=== PATIENT | female | born 2000 | race Hispanic/Latino ===

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

== ENCOUNTER 2020-03-12 18:59 | Emergency (ER) | payer OTHER, SELFPAY ==
[2020-03-12 19:08] VITALS: BP 132/75; PULSE 80; RESP 16; TEMP 37.1; O2SAT 100
--- NOTE | 2020-03-12 19:18 | ED.EAR ---
HPI - Ear Problem General Chief complaint: Ear Stated complaint: severe ear pain Time Seen by Provider: 03/12/20 19:18 Source: patient and RN notes reviewed Mode of arrival: ambulatory Limitations: no limitations History of Present Illness HPI Narrative: 19 year old female who presents to [facility] with complaints of having a cold about 4 weeks ago and she saw her physician at that time but did not receive any prescriptions. Patient states that she has been taking intermittently some Nyquil and also Dayquil for stuffy nose and cough. Patient states that her cough and nasal congestion have improved by for the past 2 days she has had pressure and discomfort in her left ear and decreased ability to hear. Patient has noted wax build up in her right ear with TM normal and some in the left but ear canal of the left ear is red and irritated TM noted to be normal, no drainage noted from her ears. MD Complaint: ear pain Location: left ear Severity: moderate Relieving factors: NDAIDs Exacerbating factors: nothing Context: Reports recent illness (cold symptoms) Associated symptoms ear: decreased hearing and other (ear discomfort with pressure left ear) Treatment prior to arrival: other (took Dayquil and Nyquil) Related Data Allergies Allergy/AdvReac Type Severity Reaction Status Date / Time No Known Allergies Allergy Mild Verified 03/12/20 19:12 Review of Systems Review of Systems: Narrative: CONSTITUTIONAL: Denies fever, chills, or sweats. EYES: Denies visual changes, redness, or discharge. ENT: Positive rhinorrhea, congestion,no sore throat, states left ear otalgia. CARDIOVASCULAR: Denies chest pain, palpitations, or edema. RESPIRATORY: Resolved cough denies any dyspnea GASTROINTESTINAL: Denies abdominal pain, nausea, vomiting, or diarrhea. GENITOURINARY: Denies dysuria or hematuria. SKIN: Denies rash or itching. MUSCULOSKELETAL: Denies back pain, joint pain, or myalgia. NEUROLOGIC: Denies headache, numbness, or weakness. PSYCHIATRIC: Denies anxiety or depression. All systems reviewed & are unremarkable except as noted in HPI and below PMFSH Past Medical History Medical History Patient denies medical problems Surgical History Surgical History Hx of tonsillectomy Social History Social History (Updated 03/12/20 @ 19:59 by Emily Oconnor NP) Smoking status: Never smoker Alcohol intake: never Substance use: never Living arrangements: with family Gender identity (if verbalized by the patient): Female Comments At time of signature, agree with nursing past medical, surgical, social history. There is no relevant family history pertinent to the presenting complaint Exam Narrative: Exam Narrative: GENERAL: Well-appearing, well-nourished, and in no acute distress. HEAD: Normocephalic, atraumatic. EYES: PERRLA and EOMI. ENT: Nares light red, clear rhinorrhea no epistaxis. Mucous membranes moist.TM right has wax build up with no drainage noted no pain voiced to right ear TM normal with good light reflex, Left ear has some wax build up but able to see TM also with no redness to TM, canal is red and irritated, throat is pink no lesions or exudates, previous tonsillectomy, clear post nasal drainage noted to back of throat. NECK: Supple.no lymphadenopathy CHEST: Clear to auscultation. No respiratory distress.SAO2 100% on room air. HEART: Regular rate and rhythm. No murmur heard. Normal peripheral pulses. ABDOMEN: Soft, nontender, nondistended, normal active bowel sounds. EXTREMITIES: Normal range of motion. No edema. SKIN: Warm, dry, no rash. NEURO: No focal deficits. Alert and oriented x3. Course Vital Signs Vital signs: Vital Signs Temperature 37.1 C 03/12/20 19:08 Pulse Rate 80 03/12/20 19:08 Respiratory Rate 16 03/12/20 19:08 Blood Pressure 132/75 03/12/20 19:08 Pulse Oximetry 100 03/12/20 19
== END 2020-03-12 19:38 | disposition home or self-care (01) ==
PROVIDERS: Emergency Provider Registered Nurse
DX: H60.92 Unspecified otitis externa, left ear (principal)
CPT/HCPCS: 99213; G0463

== ENCOUNTER 2020-06-23 10:26 | Emergency (ER) | payer OTHER, SELFPAY ==
--- NOTE | 2020-06-23 10:31 | ED.NAVMDI ---
HPI - Nausea/Vomiting/Diarrhea General Chief complaint: Abdominal Pain Stated complaint: vomiting/diarrhea Time Seen by Provider: 06/23/20 10:30 Source: patient Mode of arrival: ambulatory Limitations: no limitations History of Present Illness HPI Narrative: Patient is a 19 year old female who reports nausea, vomiting and diarrhea x 1 day. She reports eating shrimp last pm and vomiting x 2, she reports multiple episodes of diarrhea this am. She reports a history of IBS and Gastritis by pcp in 09/02. She reports that she does not have pcp at this time. She denies fever, chills, body aches or other complaints. She reports possibility of preganancy as she does not take control and is sexually active. She reports LMP last month. She denies abdominal cramping or urinary complaints at this time. She denies taking otc medications prior to arrival. Patient is also requesting Covid testing because of the nausea, vomiting and diarrhea as her work is requesting. 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 MD elicited complaint: nausea, vomiting and diarrhea Related Data Allergies Allergy/AdvReac Type Severity Reaction Status Date / Time No Known Allergies Allergy Mild Verified 03/12/20 19:12 Review of Systems Review of Systems: Narrative: CONSTITUTIONAL: Denies fever, chills, or sweats. EYES: Denies visual changes, redness, or discharge. ENT: Denies rhinorrhea, congestion, sore throat, or otalgia. CARDIOVASCULAR: Denies chest pain, palpitations, or edema. RESPIRATORY: Denies cough or dyspnea. GASTROINTESTINAL: Denies abdominal pain, reports nausea, vomiting, and diarrhea. GENITOURINARY: Denies dysuria or hematuria. SKIN: Denies rash or itching. MUSCULOSKELETAL: Denies back pain, joint pain, or myalgia. NEUROLOGIC: Denies headache, numbness, dizziness, or weakness. PSYCHIATRIC: Denies anxiety or depression. [facility] Past Medical History Medical History Patient denies medical problems Surgical History Surgical History Hx of tonsillectomy Family History Family History (Updated 06/23/20 @ 10:31 by NAYELI Ramirez) Other No significant family history Social History Social History Smoking status: Never smoker Alcohol intake: never Substance use: never Gender identity (if verbalized by the patient): Female Comments At the time of signature, I have reviewed and agree with nursing past medical, surgical, social, and family history unless otherwise noted. Please see nursing chart for further information. There is no relevant family history pertinent to the presenting complaint. Exam Narrative: Exam Narrative: GENERAL: Well-appearing, well-nourished, and in no acute distress. HEAD: Normocephalic, atraumatic. EYES: EOMI. No redness or drainage. Conjunctiva are normal. ENT: Mucous membranes pink and moist. CHEST: No respiratory distress. Clear to auscultation. HEART: Regular rate and rhythm. No murmur appreciated. Normal peripheral pulses. GI: Soft, nontender without rebound, or guarding. No distention. Bowel sounds normal in all quadrants. EXTREMITIES: Normal range of motion. SKIN: Warm, dry, no rash. NEURO: No focal deficits. Alert and oriented x3. Gait steady. PSYCH: Normal affect. No signs of depression or anxiety. Course Vital Signs Vital signs: Vital Signs Temperature 36.9 C 06/23/20 10:46 Pulse Rate 74 06/23/20 10:46 Respiratory Rate 16 06/23/20 10:46 Blood Pressure 120/59 L 06/23/20 10:46 Pulse Oximetry 99 06/23/20 10:46 Temperature 36.9 C 06/23/20 10:46 Pulse Rate 74 06/23/20 10:46 Respiratory Rate 16 06/23/20 10:46 Blood Pressure 120/59 L 06/23/20 10:46 Pulse Oximetry 99 06/23/20 10:46 MDM - Nausea/Vomiting/Diarrhea MDM Narrative Medical decision making narrative: Pat
[2020-06-23 10:46] VITALS: BP 120/59; PULSE 74; RESP 16; TEMP 36.9; O2SAT 99
--- NOTE | 2020-06-23 11:08 | PC.NURSE ---
in br to obtain ua spec.
== END 2020-06-23 11:38 | disposition home or self-care (01) ==
PROVIDERS: Emergency Provider Nurse Practitioner
DX: K52.9 Noninfective gastroenteritis and colitis, unspecified (principal); Z20.822 Contact with and (suspected) exposure to COVID-19
CPT/HCPCS: 81003; 81025; 87426; 99213; C9803; G0463

== ENCOUNTER 2021-03-02 10:13 | Emergency (ER) | payer OTHER, SELFPAY ==
[2021-03-02 10:36] VITALS: BP 109/61; PULSE 92; RESP 16; TEMP 37.1; O2SAT 100
--- NOTE | 2021-03-02 11:05 | ED.FEMALEGU ---
HPI - Female Genitourinary General Chief complaint: Abdominal Pain Stated complaint: abd pain Time Seen by Provider: 03/02/21 11:05 Source: patient Mode of arrival: ambulatory Limitations: no limitations History of Present Illness HPI Narrative: Yuki Neely is a 20 yo female with no PMH who comes with left sided lower abdominal pain and vaginal discharge; being screened for UTI and STD. No fever, no nausea vomiting diarrhea; last unprotected sexual contact 2 weeks ago; no dysuria, no fever ,nausea, vomiting or diarrhea Related Data Allergies Allergy/AdvReac Type Severity Reaction Status Date / Time No Known Allergies Allergy Mild Verified 03/02/21 10:43 Review of Systems Review of Systems: CONSTITUTIONAL: Denies fever, chills, sweats. EYES: Denies visual changes, redness, discharge. ENT: Denies rhinorrhea, congestion, sore throat, otalgia. CARDIOVASCULAR: Denies chest pain, palpitations, edema. RESPIRATORY: Denies dyspnea, wheezing, cough GASTROINTESTINAL: has lower abdominal pain, no nausea, vomiting, diarrhea. GENITOURINARY: Denies dysuria, hematuria, has abnormal discharge SKIN: Denies rash or itching. NEUROLOGIC: Denies numbness, or focal weakness. PSYCHIATRIC: Denies anxiety or depression. PMFSH Past Medical History Medical History Patient denies medical problems Surgical History Surgical History Hx of tonsillectomy Family History Family History Other No significant family history Social History Social History Smoking status: Never smoker Alcohol intake: never Substance use: never Gender identity (if verbalized by the patient): Female Comments At time of signature, I agree with nursing past medical, surgical, social and family history. There is no relevant family history pertinent to the presenting complaint. Exam Narrative: GENERAL: This is a well-nourished, well-developed patient, in mild distress. HEAD: normocephalic, atraumatic. EYES: Sclera clear/white. Vision is grossly intact. EARS: External ears normal,. Hearing grossly intact. NOSE: External nose normal without nasal discharge, nares without redness, no rhinorrhea. THROAT: Mucous membranes moist, NECK: Neck supple, non-tender CARDIOVASCULAR: Regular rate and rhythm without murmurs, gallops, or rubs. RESPIRATORY: Clear to auscultation. Breath sounds equal bilaterally. No wheezes, rales, or rhonchi. GASTROINTESTINAL: Abdomen soft, tender, mild left suprapubic pain SKIN: warm, intact with no suspicious lesions or rash, good texture and turgor. NEURO: awake, alert, and oriented to person, place and time. There were no obvious focal neurologic abnormalities. Steady gait EXTREMITIES: Normal range of motion. BACK: Nontender without deformity Course Course Emergency Course: [facility] lower abdominal pain and concern over STD after having unprotected sex 2 weeks ago states has a vaginal discharge x 3 days UA shows trace blood trace leukocytes, UA shows minimal amount of discharge although patient states has had yellow discharge over the last few days Given Rocephin, started on doxycycline and Flagyl per CDC guidelines; patient follow-up with OB, primary care physician if abdominal pain does not respond to these medications, or go to an ER for an ultrasound Vital Signs Vital signs: Vital Signs Temperature 98.8 F 03/02/21 10:36 Pulse Rate 92 03/02/21 10:36 Respiratory Rate 16 03/02/21 10:36 Blood Pressure 109/61 03/02/21 10:36 Pulse Oximetry 100 03/02/21 10:36 Temperature 98.8 F 03/02/21 10:36 Pulse Rate 92 03/02/21 10:36 Respiratory Rate 16 03/02/21 10:36 Blood Pressure 109/61 03/02/21 10:36 Pulse Oximetry 100 03/02/21 10:36 MDM - Female Sharla
[2021-03-02] MEDS: cefTRIAXone 500 MG, LIDOCAINE HCL 1% LOCAL INJ 1 ML IM (11:30)
== END 2021-03-02 11:55 | disposition home or self-care (01) ==
PROVIDERS: Emergency Provider Nurse Practitioner
DX: R10.32 Left lower quadrant pain (principal); N89.8 Other specified noninflammatory disorders of vagina
CPT/HCPCS: 81003; 87491; 87591; 87661; 96372; 99214; G0463; J0696

== ENCOUNTER 2021-04-11 09:48 | Emergency (ER) | payer OTHER, SELFPAY ==
[2021-04-11 10:04] VITALS: BP 116/69; PULSE 112; RESP 18; TEMP 39.3; O2SAT 99
--- NOTE | 2021-04-11 10:32 | ED.URI ---
HPI - URI/Sore Throat General Chief Complaint: Upper Respiratory Infection Stated Complaint: Cough, sore throat, ear pain. Time Seen by Provider: 04/11/21 10:33 Source: patient Mode of arrival: ambulatory Limitations: no limitations History of Present Illness HPI Narrative: Yuki Neely is a 20 yo female with no PMH who [facility] with complaints of 102 fever and pain in muscles. Has had diarrhea, has congestion, symptoms started on Sunday Related Data Allergies Allergy/AdvReac Type Severity Reaction Status Date / Time No Known Allergies Allergy Mild Verified 03/02/21 10:43 Review of Systems Review of Systems: CONSTITUTIONAL: Has fever, chills, sweats. EYES: Denies visual changes, redness, discharge. ENT: Denies rhinorrhea, has congestion, sore throat, otalgia. CARDIOVASCULAR: Denies chest pain, palpitations, edema. RESPIRATORY: Denies dyspnea, wheezing, mild cough GASTROINTESTINAL: Denies abdominal pain, nausea, vomiting, has had diarrhea. GENITOURINARY: Denies dysuria, hematuria, abnormal discharge SKIN: Denies rash or itching. NEUROLOGIC: Denies numbness, or focal weakness. PSYCHIATRIC: Denies anxiety or depression. PMFSH Past Medical History Medical History Patient denies medical problems Surgical History Surgical History Hx of tonsillectomy Family History Family History Other No significant family history Social History Social History Smoking status: Never smoker Alcohol intake: never Substance use: never Gender identity (if verbalized by the patient): Female Comments At time of signature, I agree with nursing past medical, surgical, social and family history. There is no relevant family history pertinent to the presenting complaint. Exam Narrative: GENERAL: This is a well-nourished, well-developed patient, in mild distress. HEAD: normocephalic, atraumatic. EYES: Sclera clear/white. Vision is grossly intact. EARS: External ears normal, auditory canals clear and without drainage, TMs normal without perforation. Hearing grossly intact. NOSE: External nose normal without nasal discharge, nares without redness, no rhinorrhea. THROAT: Mucous membranes moist, posterior pharynx erythema NECK: Neck supple, tender CARDIOVASCULAR: Tachycardic rate and rhythm without murmurs, gallops, or rubs. RESPIRATORY: Clear to auscultation. Breath sounds equal bilaterally. No wheezes, rales, or rhonchi. GASTROINTESTINAL: Abdomen soft, SKIN: warm, intact with no suspicious lesions or rash, good texture and turgor. NEURO: awake, alert, and oriented to person, place and time. There were no obvious focal neurologic abnormalities. Steady gait EXTREMITIES: Normal range of motion. BACK: Nontender without deformity Course Course Emergency Course: Patient has had symptoms for 3 days of headache ear pain sore throat fever that has not broken and had a day of watery diarrhea Flu test is positive for A Directions on fever control by rotating Tylenol and ibuprofen and maintaining hydration; given Mucinex as she said they made her feel worse Vital Signs Vital signs: Vital Signs Temperature 102.8 F H 04/11/21 10:04 Pulse Rate 112 H 04/11/21 10:04 Respiratory Rate 18 04/11/21 10:04 Blood Pressure 116/69 04/11/21 10:04 Pulse Oximetry 99 04/11/21 10:04 Temperature 102.8 F H 04/11/21 10:04 Pulse Rate 112 H 04/11/21 10:04 Respiratory Rate 18 04/11/21 10:04 Blood Pressure 116/69 04/11/21 10:04 Pulse Oximetry 99 04/11/21 10:04 MDM - URI/Sore Throat Differential Diagnosis Differential diagnosis: Likely upper respiratory infection, viral infection, bronchitis, influenza, pharyngitis and other Lab Data Labs: Influenza A Screen Positive
[2021-04-11] MEDS: KETOROLAC (*BKC) 60 MG/2 ML VIAL IM (11:04)
== END 2021-04-11 11:08 | disposition home or self-care (01) ==
PROVIDERS: Emergency Provider Nurse Practitioner
DX: J11.1 Influenza due to unidentified influenza virus with other respiratory manifestations (principal)
CPT/HCPCS: 87804; 96372; 99213; G0463; J1885

== ENCOUNTER 2021-09-15 00:07 | Emergency (ER) | payer OTHER, SELFPAY ==
[2021-09-15 00:13] VITALS: BP 147/89; PULSE 94; RESP 18; TEMP 36.6; O2SAT 100
--- NOTE | 2021-09-15 03:11 | ED.EXTPRO ---
HPI - Extremity Problem General Chief complaint: Extremity Problem,Nontraumatic Stated complaint: poss infection rt great toe Time Seen by Provider: 09/15/21 02:22 Source: patient Mode of arrival: ambulatory Limitations: no limitations History of Present Illness HPI Narrative: This is a 20 year old female that presents to the ER for right great toe swelling and pain. Ongoing over the last week. Reports worsening redness and some drainage from the area which prompted her to be seen. Denies fever. Related Data Allergies Allergy/AdvReac Type Severity Reaction Status Date / Time No Known Allergies Allergy Mild Verified 09/15/21 02:39 Review of Systems Review of Systems: CONSTITUTIONAL: Denies fever SKIN: Reports redness and swelling All systems reviewed & are unremarkable except as noted in HPI and below PMFSH Past Medical History Medical History Patient denies medical problems Surgical History Surgical History Hx of tonsillectomy Family History Family History Other No significant family history Social History Social History Smoking status: Never smoker Alcohol intake: never Substance use: never Gender identity (if verbalized by the patient): Female Exam Narrative: GENERAL: Well-appearing, well-nourished, and in no acute distress. HEAD: Normocephalic, atraumatic. EYES: EOMI. EXTREMITIES: Normal range of motion. Mild edema about the right great toe with redness to the lateral aspect of the nail SKIN: Warm, dry, no rash. NEURO: No focal deficits. Alert and oriented x3. PSYCH: Normal mood and affect Course Vital Signs Vital signs: Vital Signs Temperature 98 F 09/15/21 00:13 Pulse Rate 94 09/15/21 00:13 Respiratory Rate 18 09/15/21 00:13 Blood Pressure 147/89 H 09/15/21 00:13 Pulse Oximetry 100 09/15/21 00:13 Oxygen Delivery Room Air 09/15/21 00:13 Temperature 98 F 09/15/21 00:13 Pulse Rate 94 09/15/21 00:13 Respiratory Rate 18 09/15/21 00:13 Blood Pressure 147/89 H 09/15/21 00:13 Pulse Oximetry 100 09/15/21 00:13 Oxygen Delivery Room Air 09/15/21 00:13 Procedures Abscess I/D lower extremity: Date of Incision: 09/15/21 Time of Incision: 03:41 Side (if applicable): right Local Anesthetic: lidocaine 1% Amount of anesthesia used (mL): 3 Technique: needle aspiration Irrigation: No Packing used?: none I&D Results: Blood MDM - Extremity (Nontraumatic) MDM Narrative Medical decision making narrative: Patient presents to the emergency department for paronychia. She is afebrile and nontoxic-appearing. Attempted I&D only produced blood. Patient instructed on warm, soapy soaks. Will be started on oral antibiotics. She is to follow-up with her primary care doctor. She was given warnings to return to the ER Critical Care Time Critical Care Time Critical Care Time: No Discharge Plan Discharge Clinical Impression: Paronychia Patient Disposition: Home, Self-Care Condition: Stable Instructions: Antibiotic Form, Paronychia (ED) Additional Instructions: Return if symptoms worsen or concerns: any increase in redness, swelling, pain or fever over 101 Take antibiotics as directed. Soak the toe in warm soapy water for 15 minutes twice daily Follow up with primary care in the next 2-3 days for re-evaluation Prescriptions: No Action Mucinex Fast-Max Cold-Flu 5-33-802-200 mg tablet 2 tablet PO Q4-6H PRN (Reason: flu symptoms) Qty: 30 0RF Follow-up/Referrals: Sergey,Armida Edmonds APN [Primary Care Provider] - 2 Days
[2021-09-15] MEDS: CEPHALEXIN 500 MG CAPSULE PO (03:46)
== END 2021-09-15 04:08 | disposition home or self-care (01) ==
PROVIDERS: Emergency Provider Emergency Medicine; PCP Nurse Practitioner Family
DX: L03.031 Cellulitis of right toe (principal)
CPT/HCPCS: 10060; 99283; A9270

== ENCOUNTER 2022-07-29 18:12 | Emergency (ER) | payer OTHER, SELFPAY ==
[2022-07-29 18:26] VITALS: BP 130/68; PULSE 89; RESP 12; TEMP 36.8; O2SAT 100
--- NOTE | 2022-07-29 18:36 | ED.EAR ---
HPI - Ear Problem General Chief complaint: Ear Stated complaint: Left Ear Irritation Source: patient and RN notes reviewed History of Present Illness HPI Narrative: 21 yo F presents to urgent care with complaints of left ear pain that has been intermittent the last couple weeks but constant today. Pt also reporting inability to hear out of left ear for a couple days. Denies any fevers, chills, congestion, sore throat, or other complaints. Related Data Allergies Allergy/AdvReac Type Severity Reaction Status Date / Time No Known Allergies Allergy Mild Verified 07/29/22 18:34 Review of Systems Review of Systems: CONSTITUTIONAL: Denies fever, chills, or sweats. EYES: Denies visual changes, redness, or discharge. ENT: left ear pain as well as can't hear out of left ear. CARDIOVASCULAR: Denies chest pain, palpitations, or edema. RESPIRATORY: Denies cough or dyspnea. GASTROINTESTINAL: Denies abdominal pain, nausea, vomiting, or diarrhea. GENITOURINARY: Denies dysuria or hematuria. SKIN: Denies rash or itching. MUSCULOSKELETAL: Denies back pain, joint pain, or myalgia. NEUROLOGIC: Denies headache, numbness, or weakness. Pertinent positives per HPI. PMFSH Past Medical History Medical History Patient denies medical problems Surgical History Surgical History Hx of tonsillectomy Family History Family History Other No significant family history Social History Social History Smoking status: Never smoker Alcohol intake: never Substance use: never Living arrangements: with family Gender identity (if verbalized by the patient): Female Comments At the time of my signature, I reviewed and agree with the nursing past medical, surgical, social, and family history. There is no relevant family history pertinent to the patient complaint. Exam Narrative: GENERAL: This is a well-nourished, well-developed patient, in no apparent distress. HEAD: normocephalic, atraumatic. EYES: PERRL. Sclera clear/white. Vision is grossly intact. EARS: External ears normal, TM's not visualized bilaterally due to cerumen impaction. NOSE: External nose normal with no obvious nasal discharge, nares without redness, no rhinorrhea. THROAT: Mucous membranes moist, posterior pharynx clear. NECK: Neck supple, non-tender without lymphadenopathy, masses or thyromegaly. CARDIOVASCULAR: Regular rate RESPIRATORY: no respiratory distress SKIN: warm, intact with no suspicious lesions or rash, good texture and turgor. NEURO: awake, alert, and oriented to person, place and time. There were no obvious focal neurologic abnormalities. Course Course Level of Care: Express Care Visit Vital Signs Vital signs: Vital Signs Temperature 98.3 F 07/29/22 18:26 Pulse Rate 89 07/29/22 18:26 Respiratory Rate 12 07/29/22 18:26 Blood Pressure 130/68 07/29/22 18:26 Pulse Oximetry 100 07/29/22 18:26 Oxygen Delivery Room Air 07/29/22 18:26 Temperature 98.3 F 07/29/22 18:26 Pulse Rate 89 07/29/22 18:26 Respiratory Rate 12 07/29/22 18:26 Blood Pressure 130/68 07/29/22 18:26 Pulse Oximetry 100 07/29/22 18:26 Oxygen Delivery Room Air 07/29/22 18:26 reviewed. Medical Decision Making MDM Narrative Medical decision making narrative: Take antibiotics as directed. May given ibuprofen and/or Tylenol as needed for pain and/or fever. Follow up with primary care provider in 7-10 days to have ear rechecked. Differential Diagnosis Differential Diagnosis: AOM, cerumen impaction, FB Vital Signs Vital Signs: Vital Signs Temperature 98.3 F 07/29/22 18:26 Pulse Rate 89 07/29/22 18:26 Respiratory Rate 12 07/29/22 18:26 Blood Pressure 130/68 07/29/22 18:26 Pulse Oximetry 100 07/29/22 18:26
== END 2022-07-29 18:40 | disposition home or self-care (01) ==
PROVIDERS: Emergency Provider Nurse Practitioner Family; PCP Nurse Practitioner Family
DX: H61.23 Impacted cerumen, bilateral (principal)
CPT/HCPCS: 99213; G0463

== ENCOUNTER 2022-10-18 16:02 | Emergency (ER) | payer OTHER, SELFPAY ==
[2022-10-18 16:08] VITALS: BP 147/80; PULSE 76; RESP 16; TEMP 37.1; O2SAT 99
[2022-10-18 16:10] VITALS: BP 147/80; PULSE 76; RESP 16; TEMP 37.1; O2SAT 99
--- NOTE | 2022-10-18 16:28 | ED.EAR ---
HPI - Ear Problem General Chief complaint: Ear Stated complaint: Ears Irritation/Nausea Time Seen by Provider: 10/18/22 16:18 Source: patient and RN notes reviewed Mode of arrival: ambulatory Limitations: no limitations History of Present Illness HPI Narrative: patient presents today complaining of right ear pain and nausea. Patient jumped off a 20 ft no into a [place] yesterday, causing immediate pain to both ears. States the left ear has improved, but the right ear pain has persisted. States she can hear normally out of the right ear. She currently rates her pain 4/10 and has been taking ibuprofen with some relief. Related Data Home Medications Medication Instructions Recorded Confirmed No Home Medications 10/18/22 10/18/22 Allergies Allergy/AdvReac Type Severity Reaction Status Date / Time No Known Allergies Allergy Mild Verified 07/29/22 18:34 Review of Systems Review of Systems: CONSTITUTIONAL: Denies body aches, fever, chills, or sweats. EYES: Denies visual changes, redness, or discharge. ENT: Denies rhinorrhea, congestion, sore throat. + Right ear pain CARDIOVASCULAR: Denies chest pain, palpitations, or edema. RESPIRATORY: Denies cough or dyspnea. GASTROINTESTINAL: Denies abdominal pain, vomiting, or diarrhea.+ nausea GENITOURINARY: Denies dysuria or hematuria. SKIN: Denies rash, itching, or wounds. MUSCULOSKELETAL: Denies back pain, joint pain, or myalgia. NEUROLOGIC: Denies headache, numbness, tingling, or weakness. PSYCH: Denies depression or anxiety. [facility] Past Medical History Medical History Patient denies medical problems Surgical History Surgical History Hx of tonsillectomy Family History Family History Other No significant family history Social History Social History Smoking status: Never smoker Alcohol intake: never Substance use: never Living arrangements: with family Gender identity (if verbalized by the patient): Female Comments At time of signature, I have reviewed and agree with nursing past medical, surgical, social and family history unless otherwise noted. Please see nursing chart for further information. There is no relevant family history pertinent to the presenting complaint Exam Narrative: GENERAL: Well-appearing, well-nourished, and in no acute distress. HEAD: Normocephalic, atraumatic. EYES: EOMI. No redness or drainage. Conjunctivae normal. ENT: Mucous membranes pink and moist. Nares clear. No rhinorrhea. left TM and canal normal. right canal normal with small amount of cerumen. The visualized portion of the TM is normal. NECK: Normal AROM. CHEST: No respiratory distress. EXTREMITIES: Normal range of motion. No edema. SKIN: Warm, dry, no rash. Capillary refill normal. Normal skin turgor. NEURO: No focal deficits. Alert and oriented x3. Gait steady. PSYCH: Normal affect. No signs of depression or anxiety. Course Course Level of Care: Express Care Visit Vital Signs Vital signs: Vital Signs Temperature 98.8 F 10/18/22 16:08 Pulse Rate 76 10/18/22 16:08 Respiratory Rate 16 10/18/22 16:08 Blood Pressure 147/80 H 10/18/22 16:08 Pulse Oximetry 99 10/18/22 16:08 Oxygen Delivery Room Air 10/18/22 16:08 Temperature 98.8 F 10/18/22 16:10 Pulse Rate 76 10/18/22 16:10 Respiratory Rate 16 10/18/22 16:10 Blood Pressure 147/80 H 10/18/22 16:10 Pulse Oximetry 99 10/18/22 16:10 Oxygen Delivery Room Air 10/18/22 16:10 Reviewed. Pt has been instructed to follow up with her PCP regarding her elevated blood pressure today. Medical Decision Making MDM Narrative Medical decision making narrative: The visualized portion of the right TM appears
== END 2022-10-18 16:41 | disposition home or self-care (01) ==
PROVIDERS: Emergency Provider Nurse Practitioner; PCP Nurse Practitioner Family
DX: H92.01 Otalgia, right ear (principal)
CPT/HCPCS: 99211; G0463

== ENCOUNTER 2023-08-10 05:10 | Emergency (ER) | payer OTHER, SELFPAY ==
--- NOTE | ~2023-08-10 | XR_ITS ---
EXAMINATION: XR knee RT min 4V DATE: 08/10/2023 06:01 INDICATION: Right knee pain and swelling. Fall. TECHNIQUE: 4 views of right knee were obtained. COMPARISON: None. FINDINGS: Bone alignment is normal. No fracture. There is mild osteoarthritis of medial and patellofe moral compartments. There is a small knee joint effusion. IMPRESSION: 1. Mild right knee osteoarthritis. 2. Small right knee joint effusion. Reviewed, dictated and finalized at location A.
[2023-08-10 05:17] VITALS: BP 144/72; PULSE 87; RESP 14; TEMP 37; O2SAT 100
--- NOTE | 2023-08-10 06:14 | ED.GENADULT ---
HPI - General Adult General Chief complaint: Extremity Injury, Lower Stated complaint: fall, right knee pain Time Seen by Provider: 08/10/23 05:11 History of Present Illness HPI narrative: Patient is a 22-year-old female who presents to the emergency department this morning complaining of knee pain. Patient states that she was walking and felt her knee give out and fell forward landing on her right knee. Patient admits that she has had similar issues with her knee in the past, having multiple episodes of her right knee giving out. Patient admits that she used to play soccer and may have sustained some ligamentous injury in the past. Patient has not had an MRI of her right knee and has not had this evaluated in the past. She has been ambulatory since the fall and is able to put weight on her right lower extremity with some pain. Patient denies hitting her head and denies additional symptoms at this time. Related Data Home Medications Medication Instructions Recorded Confirmed No Home Medications 10/18/22 10/18/22 Allergies Allergy/AdvReac Type Severity Reaction Status Date / Time No Known Allergies Allergy Mild Verified 12/20/22 11:49 Review of Systems Review of Systems: All systems are reviewed and are negative unless stated otherwise in the HPI. [facility] Past Medical History Medical History Patient denies medical problems Surgical History Surgical History Hx of tonsillectomy Family History Family History Other No significant family history Social History Social History Smoking status: Never smoker Alcohol intake: never Substance use: never Living arrangements: with family Gender identity (if verbalized by the patient): Female Exam Narrative: General: Alert, awake, afebrile, in no acute distress. Cardiovascular: Regular rate and rhythm, no murmurs, rubs or gallops, no peripheral edema. Respiratory: Clear to auscultation bilaterally, no tachypnea, no wheezing, no rhonchi, no rubs, no respiratory distress. Abdomen: Soft, nontender, nondistended, no rebound, no guarding, no peritoneal signs. Musculoskeletal: No right knee joint swelling or deformity, tenderness palpation over the medial aspect of the right knee, intact knee flexion and extension, negative anterior and posterior drawer signs. Skin: No rashes or petechia, no signs of infection. Psychiatric: Alert and oriented, normal behavior and judgment for situation. Neurological: Alert and oriented to person, place, and time. Follows all commands. No focal deficits, speech is clear and fluent. Course Vital Signs Vital signs: Vital Signs Temperature 98.6 F 08/10/23 05:17 Pulse Rate 87 08/10/23 05:17 Respiratory Rate 14 08/10/23 05:17 Blood Pressure 144/72 H 08/10/23 05:17 Pulse Oximetry 100 08/10/23 05:17 Oxygen Delivery Room Air 08/10/23 05:17 Temperature 98.6 F 08/10/23 05:17 Pulse Rate 87 08/10/23 05:17 Respiratory Rate 14 08/10/23 05:17 Blood Pressure 144/72 H 08/10/23 05:17 Pulse Oximetry 100 08/10/23 05:17 Oxygen Delivery Room Air 08/10/23 05:17 Medical Decision Making MDM Narrative Medical decision making narrative: The patient was evaluated by myself in the emergency department. History is obtained from patient who is an independent historian and physical exam was performed. External medical records were reviewed at this time. Imaging studies obtained included right knee x-ray which was independently interpreted by me revealing no acute process, which is pending final radiology interpretation. Patient was placed in an Chinmay wrap for comfort. Differential diagnosis considerations include fractures, dislocation, and ligamentous injury. Comorbidities impa
--- NOTE | 2023-08-10 07:26 | PC.NURSE ---
Chinmay bandage applied to R leg.
== END 2023-08-10 07:28 | disposition home or self-care (01) ==
PROVIDERS: Emergency Provider Emergency Medicine; PCP Nurse Practitioner Family
DX: M23.91 Unspecified internal derangement of right knee (principal); S89.91XA Unspecified injury of right lower leg, initial encounter; W18.39XA Other fall on same level, initial encounter
CPT/HCPCS: 73564; 99283

== ENCOUNTER 2023-08-22 10:16 | Outpatient (CLI) | payer OTHER, SELFPAY ==
--- NOTE | ~2023-08-22 | MR_ITS ---
MRI of the right knee Clinical history: Pain Technique: Coronal proton density and proton density-weighted images, sagittal proton-density and T2 fat-sat images, and axial proton-density fat-saturated images were acquired. Findings: Anterior and posterior cruciate ligaments are intact. Medial collateral ligament and the la teral collateral ligament complex are intact. Popliteus tendon is intact. Medial and lateral menisci are intact, without evidence of tear. There is focal bone contusion at the medial aspect of the patellar pole. There is additional bone con tusion at the lateral femoral condyle. There is moderate to high-grade partial tearing of the medial patellar retinaculum at its patellar insertion. Articular cartilage is well preserved throughout the knee. Extensor mechanism intact otherwise. Moder ate joint effusion present. No Nicole's cyst. Impression: Contusions at the medial aspect of the patella and lateral femoral condyle are consistent with recent lateral patellar dislocation-relocation injury. Associated moderate to high-grade partial tearing of the medial patellar retinaculum at its patellar insertion. Moderate joint effusion. Cruciate ligaments and menisci are intact. Reviewed, dictated and finalized at [facility]. Impression: Contusions at the medial aspect of the patella and lateral femoral condyle are consistent with recent lateral patellar dislocation-relocation injury. Associated moderate to high-grade partial tearing of the medial patellar retina culum at its patellar insertion. Moderate joint effusion. Cruciate ligaments and menisci are intact.
== END 2023-08-22 10:17 | disposition home or self-care (01) ==
PROVIDERS: PCP Nurse Practitioner Family; Visit Provider Orthopaedic Surgery
DX: S80.01XA Contusion of right knee, initial encounter (principal); S83.411A Sprain of medial collateral ligament of right knee, initial encounter; M25.461 Effusion, right knee; X58.XXXA Exposure to other specified factors, initial encounter
CPT/HCPCS: 73721

== ENCOUNTER 2024-11-13 20:52 | Emergency (ER) | payer BC, SELFPAY ==
[2024-11-13 20:54] VITALS: BP 125/71; PULSE 110; RESP 20; TEMP 36.9; O2SAT 100
--- OUTSIDE RECORDS SUMMARY | 2024-11-13 20:54 | XMS_ITS | Encounter Summary ---
Author Organization [facility] Address [address] [address] Care Team Providers Care Bottle Caser Name Role Phone Armida Rincon COORDINATING PRODUCER-STREAM CONTROL OFFICER Primary Care Provider [phone] Encounter Details Date Type Department Care Team (Late st Contact Info) Description 02/01/2021 Telephone [facility] [address] [place] [address] Delicia Del Toro MD [address] [place] [address] Social History Tobacco Use Types Packs/Day Years Used Date Smoking Tobacco: Never Smokeless Tobacco: Never Alcohol Use Standard Drinks/Week Comments No 0 (1 standard drink = 0.6 oz pur e alcohol) Comments No Sex and Gender Information Value Date Recorded Sex Assigned at Not on file 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 No / Unsure 01/31/2021 8:13 AM CDT documented as of this encounter Miscellaneous Notes * Telephone Encounter - Delicia Del Toro MD - 02/01/2021 6:00 PM CDT Called pt Right CL cyst normal Reassured regarding left cyst Rpt U/Sin 4 weeks documented in this encounter Plan of Treatment Not on file documented as of this encounter Visit Diagnoses Not on filedocumented in this encounter Additional Health Concerns Infection Onset Date Last Indicated Resolved Time COVID-19 Under Investigation 05/02/2021 05/02/2021 05/05/2021 7:45 AM TITLE VEHICLE SERVICE ATTENDANT documented as of this encounter Care Teams Bottle Caser Relationship Specialty Start Date End Date Armida Rincon APRN-NICK [address] [place] [address] PCP - General Nurse Practitioner Family 05/05/21 documented as of this encounter
--- OUTSIDE RECORDS SUMMARY | 2024-11-13 20:54 | XMS_ITS | Clinical Summary ---
Author Organization [facility] Address [facility] [place] [address] Care Team Providers Care Devulcanizer Charger Name Role Phone Armida Rincon CHERI Primary Care Provider [phone] Allergies No known active allergies Medications escitalopram (LEXAPRO) 10 MG tablet Take 5 mg by mouth daily. 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 Gender Identity Not on file Sexual Orientation Not on file Last Filed Vital Signs Vital Sign Reading Time Taken Comments Blood Pressure 174/92 03/23/2022 5:27 PM STEAM TURBINE OPERATOR Pulse 78 03/23/2022 5:27 PM STEAM TURBINE OPERATOR Temperature 36.4 C (97.6 F) 03/23/2022 5:27 PM STEAM TURBINE OPERATOR Respiratory Rate 18 03/23/2022 5:27 PM STEAM TURBINE OPERATOR Oxygen Saturation 100% 03/23/2022 5:27 PM STEAM TURBINE OPERATOR Inhaled Oxygen Concentration - - Weight 83 kg (183 lb) 03/23/2022 5:27 PM STEAM TURBINE OPERATOR Height 157.5 cm (5' 2) 03/23/2022 5:27 PM STEAM TURBINE OPERATOR Body Mass Index 33.47 03/23/2022 5:27 PM STEAM TURBINE OPERATOR Plan of Treatment Health Maintenance Due Date Last Done Comments Cervical Cancer Screening Pap Smear (Age 21 to 29) Every 3 Years 2000 Cervical Cancer Screening 2000 Annual Physical 10/03/2003 HPV Vaccines (2 - 2-dose series) 05/15/2013 11/12/2012 Hepatitis C 2018 COVID-19 Vaccine ( season) 2023 03/13/2022, 04/25/2021, 03/24/2021 DTaP, Tdap and Td Vaccines (8 - Td or Tdap) 01/10/2026 01/11/2016, 01/24/2012, 11/21/2004, Additional history exists Hepatitis B Vaccines Completed 04/03/2001, 2000, 2000 Pneumococcal Vaccine: Pediatrics (0 to 5 Years) and At-Risk Patients (6 to 49 Years) Aged Out 04/03/2001, 02/05/2001, 2000 No longer eligible based on patient's age to complete this topic Meningococcal Vaccine Completed 11/26/2018 , 01/11/2016, 01/24/2012 Meningococcal B Vaccine Completed 03/17/2019, 01/20 RSV Immunizations Under 20 Months Aged Out No longer eligible based on patient's age to complete this topic Insurance [employer] Care Teams Devulcanizer Charger Relationship Specialty Start Date End Date Armida Rincon APNP PCP - General NURSE PRACTITIONER 03/23/22
--- OUTSIDE RECORDS SUMMARY | 2024-11-13 20:54 | XMS_ITS | Clinical Summary ---
Author Organization [facility] Address [address] [place] [address] Care Team Providers Care Regulatory Compliance Manager Name Role Phone RinconArmida SAHRA Primary Care Provider [phone] Source Comments [facility],non-owned Affiliates and Associated Physician Practices is amultiple site organization consisting of ambulatory clinics and hospital sitesin [place], [place], [place] and [place]. This disclosure is being madepursuant to the Care Everywhere program and may not contain all information available regarding this patient. Last updated 18.[facility] Allergies No known active allergies Medications * Be aware that medications may not be up to date on this document. Alwaysverify current medications with the patient. albuterol HFA (PROVENTIL; VENTOLIN; PROAIR) 108 (90 Base) MCG/ACT inhaler Inhale 2 (two) puffs by mouth every 4 hours as needed 1 Active acyclovir (ZOVIRAX) 400 MG tablet TAKE 1 TABLET BY MOUTH EVERY 8 HOURS FOR 5 DAYS THIS DOSE IS TO BE USED DURING AN OUTBREAK 0 Active ibuprofen (MOTRIN) 600 MG tabletIndicati ons:Postoperat kanwal state,Pelvic mass in female Take 1 (one) tablet by mouth every 6 hours as needed for Pain 30 tablet 1 2 Active acetaminophen (TYLENOL) 325 MG tabletIndicati ons:Postoperat kanwal state,Pelvic mass in female Take 1 (one) tablet by mouth every 4 hours as needed for Fever or Pain Maximum allowable Acetaminophen amount = 4 Grams (4000 mg) / 24 hours. 30 tablet 2 Active Additional Information Patient not taking.Reported on 01/04/2022 fluconazole (Diflucan) 150 MG tabletIndicati ons:Acute vaginitis Take 1 (one) tablet by mouth as directed And may repeat in 1 week 2 tablet 3 Active Active Problems Problem Noted Date Diagnosed Date Acute vaginitis 01/31/2023 Amenorrhea 07/12/2022 Paronychia of toe of right foot 09/22/2021 Irregular menses 01/19/2021 Pelvic mass in female 01/19/2021 Family History Medical History Relation Name Comments None Known Father None Known Maternal Grandfather Hypertension Maternal Grandmother None Known Mother Relation Name Status Comments Father Alive Maternal Grandfather Alive Maternal Grandmother Alive Mother Alive Paternal Grandfather Alive Paternal Grandmother Alive Social History Tobacco Use Types Packs/Day Years Used Date Smoking Tobacco: Never Smokeless Tobacco: Never Tobacco Cessation:Counseling Given: Not Answered Alcohol Use Standard Drinks/Week Comments No 0 (1 standard drink = 0.6 oz pur e alcohol) PHQ-2 Answer Date Recorded Patient Health Questionnaire-2 Score 0 01/22/2023 Comments No Sex and Gender Information Value Date Recorded Sex Assigned at Not on file Legal Sex Female 7:13 AM AIR SAMPLING AND MONITORING Gender Identity Not on file Sexual Orientation Not on file Last Filed Vital Signs Vital Sign Reading Time Taken Comments Blood Pressure 116/81 01/29/2023 10:17 AM CDT Pulse 82 06/03/2021 1:18 PM AIR SAMPLING AND MONITORING Temperature 36.7 C (98 F) 05/05/2021 11:40 AM AIR SAMPLING AND MONITORING Respiratory Rate 16 05/05/2021 12:21 PM AIR SAMPLING AND MONITORING Oxygen Saturation 99% 05/05/2021 12:21 PM AIR SAMPLING AND MONITORING Inhaled Oxygen Concentration - - Weight 91.2 kg (201 lb) 01/29/2023 10:17 AM CDT Height 157.5 cm (5' 2) 01/29/2023 10:17 AM CDT Body Mass Index 36.76 01/29/2023 10:17 AM CDT Plan of Treatment Health Maintenance Due Date Last Done Comments HIV SCREENING 10/03/2015 HPV VACCINE (1 - 3-dose series) 10/03/2015 CHLAMYDIA/GONORRHEA SCREENING 2016 HEPATITIS C SCREENING 09/28/2018 DTAP/TDAP/TD VACCINES (1 - Tdap) 10/03/2019 HEPATITIS B VACCINE (1 of 3 - 19+ 3-dose series) 10/03/2019 COVID-19 VACCINE (1 - season) 2023 DEPRESSION SCREENING 04/16/2024 01/29/2023 INFLUENZA VACCINE (#1) 2024 6, 03/04/2014, 01/24/2012, Additional history exists PAP SMEAR 01/29/2026 01/29/2023 ZOSTER VACCINE (1 of 2) 2050 HIB VACCINE Aged Out No longer eligi ble based on patient's age to complete this topic MENINGOCOCCAL (Group B) VACCINE SHARED DECISION-MAKING Aged Out No longer eligible based on patient's age to complete this topic MENINGOCOCCAL GROUPS A/C/Y/W VACCINE Aged Out No longer eligible based on patient's age to complete this topic PNEUMOCOCCAL VACCINE Aged Out No long er eligible based on patient's age to complete this topic Procedures Procedure Name Priority Date/Time Associated Diagnosis Comments PAP IMAGE-GUIDED RFLX HPV Routine 01/29/2023 10:38 AM CDT Well woman exam with routine gynecological exam from Last 3 Months or Most Recently Relevant to Health Maintenance Results * PAP IMAGE-GUIDED RFLX HPV (01/29/2023 10:38 AM CDT) Case Report Gynecologic Cytology Report Case: [id number] Authorizing Provider: Deidra Urbina APRN-CNP Collected: 01/29/2023 10:38 AM Ordering Location: [facility] - Received: 01/31/2023 12:23 PM [facility] Screen: Ivelisse Betancourt Rescreen: [facility] Specimen: THINPREP - IMAGE GUIDED, Cervix/Endocervix 02/05/2023 9:40 AM CDT [facility] LMP 01-04-23 02/05/2023 9:40 AM CDT [facility] Menstrual Status None Applicable 9:40 AM CDT [facility] Specimen Adequacy Satisfactory for evaluation, endocervical/trans formation zone component present. 02/05/2023 9:40 AM CDT [facility] Categorization Negative for intraepithelial lesion or malignancy. 02/05/2023 9:40 AM CDT [facility] Interpretation SOAP SLABBER Negative for intraepithelial lesion or malignancy. 02/05/2023 9:40 AM CDT [facility] at 0940 CDT Pap Footnote The Pap Smear is a screening test. False positive and false negative results occur. Negative results do not preclude abnormalities, thus clinical correlation is required. This specimen was evaluated by the [employer] Systems[employer] Imaging System along with an additional manual rescreening by a strategic consultant and/or pathologist. 02/05/2023 9:40 AM CDT [facility] Pathology/Cytolo gy MISCELLANEOUS SAMPLES / Unknown 01/29/2023 10:38 AM CDT 01/31/2023 12:23 PM CDT Deidra Urbina STOKER ERECTOR-VOLTAGE INSPECTOR LAB - PATHOLOGY/CYTOLOGY O RDERABLES Final Result [facility] [address] [phone] from Last 3 Months or Most Recently Relevant to Health Maintenance Insurance [facility] Care Teams Regulatory Compliance Manager Relationship Specialty Start Date End Date Armida Rincon APRN-NICK [address] [place] [address] PCP - General Nurse Practitioner Family 05/05/21
--- OUTSIDE RECORDS SUMMARY | 2024-11-13 20:54 | XMS_ITS | Referral Summary ---
Author Organization [facility] Address [address] [place] [address] Care Team Providers Care Breaker Engineer Name Role Phone Armida Rincon Randa FIGUEROA Primary Care Provider Encounters Date Type Department Care Team Description 09/30/2024 4:05 PM CDT - 09/30/2024 11:59 PM CDT Hospital Encounter [address] [address] Pre-employment health screening examination Discharge Disposition: Discharge to home or self care 09/30/2024 Orders Only [facility] Occup[facility] Health [address] [place] [address] Room 3420 (Third Floor) [place] [address] Vikash Atkins MD Pre-employment health screening examination (Primary Dx) from Last 3 Months Allergies No known active allergies Medications No known medications Immunizations Immunization Administration Dates Next Due Hep A, Pediatric 11/21/2004,03/24/2004 Hep B Vaccine 10/18/2022,10/13/2020 Hep B, Adolescent or Pediatric 04/03/2001,2000,2000 MMR 11/21/2004,10/03/2001 Meningococcal B, OMV (Bexsero) 03/17/2019,2018 Meningococcal Conjugate (Menveo) 01/24/2012 Meningococcal MCV4P (Menactra) 11/26/2018,2015 Tdap 01/11/2016,01/24/2012 Varicella 01/11/2016,06/03/2008,03/24/2004 ,04/01/2002 Social History Tobacco Use Types Packs/Day Years Used Date Smoking Tobacco: Never Assessed Personal Safety Answer Date Recorded Have you ever been in or are you currently in a harmful physical or emotional relationship or is someone making you feel afraid or unsafe? Denies 02/23/2024 Comments Unknown Sex and Gender Information Value Date Recorded Sex Assigned at Not on file Legal Sex Female 3:32 PM CHIEF LIFESTYLE OFFICER Gender Identity Not on file Sexual Orientation Not on file Last Filed Vital Signs Vital Sign Reading Time Taken Comments Blood Pressure 132/84 02/23/2024 7:30 PM CHIEF LIFESTYLE OFFICER Pulse 80 02/23/2024 7:30 PM CHIEF LIFESTYLE OFFICER Temperature 37.3 C (99.1 F) 02/23/2024 6:47 PM CHIEF LIFESTYLE OFFICER Respiratory Rate 11 02/23/2024 7:30 PM CHIEF LIFESTYLE OFFICER Oxygen Saturation 100% 02/23/2024 7:30 PM CHIEF LIFESTYLE OFFICER Inhaled Oxygen Concentration - - Weight - - Height 152.4 cm (5') 02/23/2024 4:20 PM CHIEF LIFESTYLE OFFICER Body Mass Index - - Plan of Treatment Not on file Procedures Procedure Name Priority Date/Time Associated Diagnosis Comments T-SPOT.TB Routine 09/30/2024 4:05 PM CDT Pre-employment health screening examination from Last 3 Months Results * T-SPOT.TB Blood (09/30/2024 4:05 PM CDT) [facility] T-SPOT.TB Negative SeeBel Comment: Normal Value: Negative A negative test result does not exclude the possibility of exposure to or infection with Mycobacterium tuberculosis (M. tuberculosis). Patients with recent exposure to TB infected individuals exhibiting a negative T-SPOT.TB result should be considered for retesting within 6 weeks or if other relevant clinical symptoms indicate. Results from T-SPOT.TB testing must be used in conjunction with each individual's epidemiological history, current medical status, and results of other diagnostic evaluations. The T-SPOT.TB test is qualitative and results are reported as positive, borderline or negative, given that the test controls perform as expected. In line with the Centers for Disease Control and Prevention's 2010 recommendation to report quantitative measurements alongside the qualitative result, the laboratory provides spot counts for informational purposes only. The T-SPOT.TB test should not be interpreted as a quantitative test. T-SPOT.TB Panel A Spot Count 0 [facility] T-SPOT.TB Panel B Spot Count 1 [facility] T-SPOT.TB Negative Control Passed [facility] T-SPOT.TB Positive Control Passed [facility] Comment: Test Performed at: [employer] [facility], [employer] [address] [place] [address] LYDIA ZHU,PHD Blood 09/30/2024 4:05 PM CDT 09/30/2024 6:36 PM CDT Narrative [facility] - 2024 3:47 PM CDT Bill to [facility] [employer] - [employer] Patient is employed by/enrolled at:->[facility] Shared Services Vikash Atkins MD LAB MICROBIOLOGY - GENERAL OR DERABLES Final Result [facility] [place] [address] from Last 3 Months Care Teams Breaker Engineer Relationship Specialty Start Date End Date Rincon, Armida Tolentino NP [address] [place] [address] PCP - General Nurse Practitioner 05/08/23
--- OUTSIDE RECORDS SUMMARY | 2024-11-13 20:54 | XMS_ITS | Continuity of Care Document ---
Author Name [facility] Organization [facility] Care Team Providers Care Camp Director Name Role Phone [facility] Unavailable Unavailable Encounters Combined list of: 1) Encounters from [facility] facilities going backup to the last 18 months, not all [place] inpatient encounters are included; 2) Encounters from the Department [facility] facilities going backup to 280 months. Location Location Details Encounter Type Encounter Number Reason For Visit Attending Provider ADM Date DC Date Status Disposition Source Ambulator y Pharmacy [facility] [id number] 03/28 Ambulat ory Pharmac y [facility] MEPS Outside Documentat ion Only [id number] 03/28 Discharge Disposition: Home or Self Care [facility] [address] Between Visit [id number] 03/28 Discharge Disposition: Home or Self Care [address] [place] [address] Procedures Combined list of: 1) Procedures from [facility] facilities going back up to thelast 18 months, not all [place] non-surgical procedures are included; 2) All procedures from the [facility] facilities. Procedure Procedure Type Code Date Perfomer Comments Sourc e No data available for this section Ambulatory P harmacy Social History Combined list of available smoking, tobacco, and other social history from [facility] facilities. Social History Type Response Date Comment Sourc e Sexual Orientation Ambula tory Pharmacy Gender identity Ambulator y Pharmacy Sex Representation Female (finding) Unknown Organization Assessment and Plan Combined list of future care activities from Department of Defense and Veterans Affairs facilities (e.g., assessment and plan notes, appointments, orders, and referrals). Additional future care activities may be listed in the Plan of Care section. Result Assessment and Plan Date Source Assessment and Plan No data available for this section 11/14/2024 Ambulatory Pharmacy Functional Status Combined list of recent functional and cognitive assessments recorded at Department of Defense and Veterans Affairs (VA).VA Functional Barber Measurement (FIM) Scale: 1 = Total Assistance (Subject = 0% +), 2 = Maximal Assistance (Subject = 25% +), 3 = Moderate Assistance (Subject = 50% +), 4 = Minimal Assistance (Subject = 75% +), 5 = Supervision, 6 = Modified Barber (Device), 7 = Complete Barber (Timely, Safely). Assessment Date/Time Source Assessment Type Assessment Skill Assessment Score Assessment Details No data available for this section
--- OUTSIDE RECORDS SUMMARY | 2024-11-13 20:54 | XMS_ITS | Clinical Summary ---
Author Organization [facility] Address [address] [place] [phone] Care Team Providers Care Post Acute Care Registered Nurse Name Role Phone Armida Rincon Randa FIGUEROA Primary Care Provider [phone] Allergies No known active allergies Medications No known medications Encounters Date Type Department Care Team Description 09/30/2024 4:05 PM CDT - 09/30/2024 11:59 PM CDT Hospital Encounter [address] [address] Pre-employment health screening examination Discharge Disposition: Discharge to home or self care 09/30/2024 Orders Only [facility] Occupatiuonal Health [address] [facility] Room 3420 (Third Floor) [place] [address] Vikash Atkins MD Pre-employment health screening examination (Primary Dx) from Last 3 Months Immunizations Immunization Administration Dates Next Due Hep [...] on file Legal Sex Female 3:32 PM AC/DC REWINDER Gender Identity Not on file Sexual Orientation Not on file Obstetrics History Last Filed Vital Signs Vital Sign Reading Time Taken Comments Blood Pressure 132/84 02/23/2024 7:30 PM AC/DC REWINDER Pulse 80 02/23/2024 7:30 PM AC/DC REWINDER Temperature 37.3 C (99.1 F) 02/23/2024 6:47 PM AC/DC REWINDER Respiratory Rate 11 02/23/2024 7:30 PM AC/DC REWINDER Oxygen Saturation 100% 02/23/2024 7:30 PM AC/DC REWINDER Inhaled Oxygen Concentration - - Weight - - Height 152.4 cm (5') 02/23/2024 4:20 PM AC/DC REWINDER Body Mass Index - - Plan of Treatment Health Maintenance Due Date Last Done Comments Cervical Cancer Screening 2000 Depression Screening 2000 Hepatitis C Screening 2000 HPV Vaccines (2 - 2-dose series) 05/15/2013 11/12/2012 Regular Well Visit/Exam 18-64 2018 Covid-19 Vaccine ( season) 2023 03/13/2022, 04/25/2021, 03/24/2021 Influenza Vaccine (#1) 2024 , 04/10/2023, 03/13/2022, Additional history exists DTaP/Tdap/Td Vaccine (8 - Td or Tdap) 01/10/2026 01/11/2016, 01/24/2012, 11/21/2004, Additional history exists Pneumococcal vaccine <65 Aged Out 001, 02/05/2001, 2000 No longer eligible based on patient's age to complete this topic Varicella Vaccines Completed 01/11/2016, 0 06/03/2008, 03/24/2004, Additional history exists Hepatitis B Screening Completed 10/18/2022 , 10/13/2020, 04/03/2001, Additional history exists Procedures Procedure Name Priority Date/Time Associated Diagnosis Comments T-SPOT.TB Routine 09/30/2024 4:05 PM CDT Pre-employment health screening examination from Last 3 Months Results * T-SPOT.TB Blood (09/30/2024 4:05 PM CDT) [facility] T-SPOT.TB Negative SeeBelow Comment: Normal Value: Negative A negative test [...] test. T-SPOT.TB Panel A Spot Count 0 [facility] T-SPOT.TB Panel B Spot Count 1 [facility] T-SPOT.TB Negative Control Passed [facility] T-SPOT.TB Positive Control Passed [facility] Comment: Test Performed at: [employer] [facility], [employer] [address] [place] [phone] LYDIA ZHU,PHD Blood 09/30/2024 4:05 PM CDT 09/30/2024 6:36 PM CDT Narrative [facility] - 2024 3:47 PM CDT Bill to [facility] - 1520 Patient is employed by/enrolled at:->[facility] Shared Services us Vikash Atkins MD LAB MICROBIOLOGY - GENERAL OR DERABLES Final Result [facility] Department [place] [address] from Last 3 Months Care Teams Post Acute Care Registered Nurse Relationship Specialty Start Date End Date Armida Rincon NP [address] [place] [address] PCP - General Nurse Practitioner 05/08/23
[2024-11-13 22:18] VITALS: BP 125/81; PULSE 108; RESP 12; O2SAT 99
[2024-11-13 22:29] LABS: Hematocrit 40.1 % (37.0-47.0); Hemoglobin 13.2 g/dL (12.0-15.0); Immature Granulocyte Percent A 0.3 % (0-0.5); Lymphocytes Absolute Auto 0.58 K/mm3 (0.9-3.2); Mean Corpuscular HGB Conc 32.9 g/dl (32-36); Mean Corpuscular Hemoglobin 31.1 pg (26-34); Mean Corpuscular Volume 94.4 fl (80-100); Nucleated Red Blood Cells Absolute Auto 0.000 K/mm3 (0.0-0.012); Nucleated Red Blood Cells Perc 0.0 % (0.0-0.2); Platelet Count Result 276 k/mm3 (150-375); Red Blood Count 4.25 M/mm3 (4.2-5.4); White Blood Count 12.8 K/mm3 (4.5-10.0)
[2024-11-13 22:31] LABS: BEDSIDEPREGUCG Negative (Negative)
[2024-11-13 22:38] LABS: Add Urine Microscopic? YES; Appearance Urine Clear (Clear); Glucose Urine UA Negative (Negative); Leukocyte Esterase Ur 1+ LEU/UL (Negative); Nitrate Urine Negative (Negative); Non Pathogenic Casts 0-2; Specific Grav Ur 1.036 (1.001-1.035)
[2024-11-13 22:42] LABS: Alanine Aminotransferase 17 U/L (6-35); Albumin Level 4.6 g/dL (3.5-5.1); Alkaline Phosphatase 59 U/L (38-126); Anion Gap 10 mmol/L (4-12); Aspartate Amino Transferase 24 U/L (14-36); Bilirubin,Total 0.5 mg/dL (0.2-1.3); Blood Urea Nitrogen 16 mg/dL (7-17); Calcium 9.4 mg/dL (8.4-10.2); Carbon Dioxide 26 mmol/L (22-30); Chloride 98 mmol/L (98-107); Estimated Glomerular Filt Rate > 60; Glucose 113 mg/dL (65-110); Lipase 63 U/L (23-300); Potassium 3.6 mmol/L (3.4-5.0); Sodium 134 mmol/L (137-145); Total Protein 7.4 g/dL (6.3-8.2)
--- OUTSIDE RECORDS SUMMARY | 2024-11-13 22:42 | XMS_ITS | Referral Summary ---
Author Organization [facility] Address [address] [place] [phone] Care Team Providers Care Enterprise Application Architect Name Role Phone Armida Rincon Randa FIGUEROA Primary Care Provider [phone] Encounters Date Type Department Care Team Description 09/30/2024 4:05 PM CDT - 09/30/2024 11:59 PM CDT Hospital Encounter [address] [address] Pre-employment health screening examination Discharge Disposition: Discharge to home or self care 09/30/2024 Orders Only [facility] Occupatiuonal Health [address] [place] [address] Room 3420 (Third Floor) [place] [address] Vikash Atkins MD Pre-employment health screening examination [...] on file Legal Sex Female 3:32 PM WIRE DRAWER Gender Identity Not on file Sexual Orientation Not on file Last Filed Vital Signs Vital Sign Reading Time Taken Comments Blood Pressure 132/84 02/23/2024 7:30 PM WIRE DRAWER Pulse 80 02/23/2024 7:30 PM WIRE DRAWER Temperature 37.3 C (99.1 F) 02/23/2024 6:47 PM WIRE DRAWER Respiratory Rate 11 02/23/2024 7:30 PM WIRE DRAWER Oxygen Saturation 100% 02/23/2024 7:30 PM WIRE DRAWER Inhaled Oxygen Concentration - - Weight - - Height 152.4 cm (5') 02/23/2024 4:20 PM WIRE DRAWER Body Mass Index - - Plan of Treatment Not on file Procedures Procedure Name Priority Date/Time Associated Diagnosis Comments T-SPOT.TB Routine 09/30/2024 4:05 PM CDT Pre-employment health screening examination from Last 3 Months Results * T-SPOT.TB Blood (09/30/2024 4:05 PM CDT) [facility] T-SPOT.TB Negative SeeBel Comment: Normal Value: Negative [...] Panel A Spot Count 0 [facility] T-SPOT.TB Panel B Spot Count 1 [facility] T-SPOT.TB Negative Control Passed [facility] T-SPOT.TB Positive Control Passed [facility] Comment: Test Performed at: [employer] [facility], [employer] [address] [place] [address] LYDIA ZHU,PHD Blood 09/30/2024 4:05 PM CDT 09/30/2024 6:36 PM CDT Narrative [facility] - 2024 3:47 PM CDT Bill to [facility] [employer] - [email or web address] Patient is employed by/enrolled at:->[facility] Shared Services Vikash Atkins MD LAB MICROBIOLOGY - GENERAL OR DERABLES Final Result [facility] Department [place] [address] from Last 3 Months Care Teams Enterprise Application Architect Relationship Specialty Start Date End Date Rincon, Armida Tolentino NP [address] [place] [address] PCP - General Nurse Practitioner 05/08/23
--- OUTSIDE RECORDS SUMMARY | 2024-11-13 22:42 | XMS_ITS | Clinical Summary ---
Author Organization [facility] [employer] Address [address] [facility] [place] [address] Care Team Providers Care Freight Elevator Operator Name Role Phone RinconArmida SAHRA Primary Care Provider [phone] Source Comments [facility] [employer],non-owned Affiliates and Associated Physician Practices is amultiple site organization consisting of ambulatory clinics and hospital sitesin [place], [place], [place] and [place]. This disclosure is being madepursuant to the Care Everywhere program and may not contain all information available regarding this patient. Last updated 18.[facility] [employer] Allergies No known active allergies Medications * [...] on file Legal Sex Female 7:13 AM NEW AUTOS DELIVERY DRIVER Gender Identity Not on file Sexual Orientation Not on file Last Filed Vital Signs Vital Sign Reading Time Taken Comments Blood Pressure 116/81 01/29/2023 10:17 AM CDT Pulse 82 06/03/2021 1:18 PM NEW AUTOS DELIVERY DRIVER Temperature 36.7 C (98 F) 05/05/2021 11:40 AM NEW AUTOS DELIVERY DRIVER Respiratory Rate 16 05/05/2021 12:21 PM NEW AUTOS DELIVERY DRIVER Oxygen Saturation 99% 05/05/2021 12:21 PM NEW AUTOS DELIVERY DRIVER Inhaled Oxygen Concentration - - Weight 91.2 [...] CDT) Case Report Gynecologic Cytology Report Case: [id number] Authorizing Provider: Deidra Urbina APRN-CNP Collected: 01/29/2023 10:38 AM Ordering Location: [facility] - Received: 01/31/2023 12:23 [...] 9:40 AM CDT [facility] Interpretation PREFABRICATED HOUSES TRIMMER Negative for intraepithelial lesion or malignancy. 02/05/2023 9:40 AM CDT [facility] at 0940 CDT Pap Footnote The Pap Smear is a screening test. False positive and false negative results occur. Negative results do not preclude abnormalities, thus clinical correlation is required. This specimen was evaluated by the [employer] Imaging System along with an additional manual rescreening by a sap enterprise portal consultant and/or pathologist. 02/05/2023 9:40 AM CDT [facility] Pathology/Cytolo gy MISCELLANEOUS SAMPLES / Unknown 01/29/2023 10:38 AM CDT 01/31/2023 12:23 PM CDT Deidra Urbina APPLIANCE FIXER-GENERAL MERCHANDISE MANAGER LAB - PATHOLOGY/CYTOLOGY O RDERABLES Final Result [facility] [address] [phone] from Last 3 Months or Most Recently Relevant to Health Maintenance Insurance [facility] Care Teams Freight Elevator Operator Relationship Specialty Start Date End Date Armdia Rincon APRN-NICK [address] [place] [address] PCP - General Nurse Practitioner Family 05/05/21
--- OUTSIDE RECORDS SUMMARY | 2024-11-13 22:42 | XMS_ITS | Clinical Summary ---
Author Organization [facility] Address [facility] [place] [address] Care Team Providers Care Manager Demand Name Role Phone Armida Rincon CHERI Primary Care Provider [phone] Allergies No known active allergies Medications escitalopram (LEXAPRO) 10 MG tablet Take 5 mg by mouth daily. 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 Sex Female 5:19 PM BLEACH PLANT OPERATOR Gender Identity Not on file Sexual Orientation Not on file Last Filed Vital Signs Vital Sign Reading Time Taken Comments Blood Pressure 174/92 03/23/2022 5:27 PM BLEACH PLANT OPERATOR Pulse 78 03/23/2022 5:27 PM BLEACH PLANT OPERATOR Temperature 36.4 C (97.6 F) 03/23/2022 5:27 PM BLEACH PLANT OPERATOR Respiratory Rate 18 03/23/2022 5:27 PM BLEACH PLANT OPERATOR Oxygen Saturation 100% 03/23/2022 5:27 PM BLEACH PLANT OPERATOR Inhaled Oxygen Concentration - - Weight 83 kg (183 lb) 03/23/2022 5:27 PM BLEACH PLANT OPERATOR Height 157.5 cm (5' 2) 03/23/2022 5:27 PM BLEACH PLANT OPERATOR Body Mass Index 33.47 03/23/2022 5:27 PM BLEACH PLANT OPERATOR Plan of Treatment Health Maintenance Due [...] complete this topic Insurance [employer] Care Teams Manager Demand Relationship Specialty Start Date End Date Armida Rincon APNP PCP - General NURSE PRACTITIONER 03/23/22
--- OUTSIDE RECORDS SUMMARY | 2024-11-13 22:42 | XMS_ITS | Encounter Summary ---
Author Organization [facility] Address [address] [facility] [place] [address] Care Team Providers Care Steam Fitter Supervisor Maintenance Name Role Phone Armida Rincon UNDERCOATER-AIRFRAME TECHNICIAN Primary Care Provider [phone] Encounter Details Date Type Department Care Team (Late st Contact Info) Description 02/01/2021 Telephone [facility] [address] [place] [address] Delicia Del Toro MD [address] [place] [address] Social History Tobacco Use Types Packs/Day Years Used Date Smoking Tobacco: Never Smokeless Tobacco: Never Alcohol Use Standard Drinks/Week Comments No 0 (1 standard drink = 0.6 oz pur e alcohol) Comments No Sex and Gender Information Value Date Recorded Sex Assigned at Not on file Legal Sex Female 7:13 AM OPTICAL FABRICATOR Gender Identity Not on file Sexual Orientation [...] Under Investigation 05/02/2021 05/02/2021 05/05/2021 7:45 AM OPTICAL FABRICATOR documented as of this encounter Care Teams Steam Fitter Supervisor Maintenance Relationship Specialty Start Date End Date Armida Rincon APRN-NICK [address] [place] [address] PCP - General Nurse Practitioner Family 05/05/21 documented as of this encounter
--- OUTSIDE RECORDS SUMMARY | 2024-11-13 22:42 | XMS_ITS | Clinical Summary ---
Author Organization [facility] Address [address] [place] [phone] Care Team Providers Care Service Parts Driver Name Role Phone Armida Rincon Randa FIGUEROA Primary Care Provider Allergies No known active allergies Medications No known medications Encounters Date Type Department Care Team Description 09/30/2024 4:05 PM CDT - 09/30/2024 11:59 PM CDT Hospital Encounter [address] [address] Pre-employment health screening examination Discharge Disposition: Discharge to home or self care 09/30/2024 Orders Only [facility] Occupatiuonal Health [address] [facility] Room 3420 (Third Floor) [place] [address] Vikash Atkins MD Pre-employment health screening examination [...] on file Legal Sex Female 3:32 PM LAUNDRY OR DRY CLEANERS COUNTER CLERK Gender Identity Not on file Sexual Orientation Not on file Obstetrics History Last Filed Vital Signs Vital Sign Reading Time Taken Comments Blood Pressure 132/84 02/23/2024 7:30 PM LAUNDRY OR DRY CLEANERS COUNTER CLERK Pulse 80 02/23/2024 7:30 PM LAUNDRY OR DRY CLEANERS COUNTER CLERK Temperature 37.3 C (99.1 F) 02/23/2024 6:47 PM LAUNDRY OR DRY CLEANERS COUNTER CLERK Respiratory Rate 11 02/23/2024 7:30 PM LAUNDRY OR DRY CLEANERS COUNTER CLERK Oxygen Saturation 100% 02/23/2024 7:30 PM LAUNDRY OR DRY CLEANERS COUNTER CLERK Inhaled Oxygen Concentration - - Weight - - Height 152.4 cm (5') 02/23/2024 4:20 PM LAUNDRY OR DRY CLEANERS COUNTER CLERK Body Mass Index - - Plan of [...] * T-SPOT.TB Blood (09/30/2024 4:05 PM CDT) [facility] T-SPOT.TB Negative SeeBelow Comment: Normal Value: [...] test. T-SPOT.TB Panel A Spot Count 0 [facility] T-SPOT.TB Panel B Spot Count 1 [facility] T-SPOT.TB Negative Control Passed [facility] T-SPOT.TB Positive Control Passed [facility] Comment: Test Performed at: [employer] [facility], [employer] [address] [place] [phone] LYDIA ZHU,PHD Blood 09/30/2024 4:05 PM CDT 09/30/2024 6:36 PM CDT Narrative [facility] - 2024 3:47 PM CDT Bill to [facility] - 1520 Patient is employed by/enrolled at:->[facility] Shared Services us Vikash Atkins MD LAB MICROBIOLOGY - GENERAL OR DERABLES Final Result [facility] Department [place] [address] from Last 3 Months Care Teams Service Parts Driver Relationship Specialty Start Date End Date Armida Rincon NP [address] [place] [address] PCP - General Nurse Practitioner 05/08/23
--- OUTSIDE RECORDS SUMMARY | 2024-11-13 22:42 | XMS_ITS | Continuity of Care Document ---
Author Name [facility] Organization [facility] Care Team Providers Care Trim And Burr Operator Name Role Phone [facility] Unavailable Unavailable Encounters Combined list of: 1) Encounters from [facility] facilities going backup to the last 18 months, not all [place] inpatient encounters are included; 2) Encounters from the Department [facility] facilities going backup to 280 months. Location Location Details Encounter Type Encounter Number Reason For Visit Attending Provider ADM Date DC Date Status Disposition Source Ambulator y Pharmacy Lifetime Pharmacy [id number] 03/28 Ambulat ory Pharmac y [facility] Outside Documentat ion Only [id number] 03/28 Discharge Disposition: Home or Self Care [facility] [address] Between Visit [id number] 03/28 Discharge Disposition: Home or Self Care [address] [place] [address] Procedures Combined list of: 1) Procedures from [facility] facilities going back up to thelast 18 months, not all [facility] non-surgical procedures are included; 2) All procedures from the [facility] facilities. Procedure Procedure Type Code Date Perfomer Comments Sourc e No data available for this section Ambulatory P harmacy Social History Combined list of available smoking, tobacco, and other social history from [facility] facilities. Social History Type Response Date Comment [...] of Defense and Veterans Affairs (VA).VA Functional Lajas Measurement (FIM) Scale: 1 = Total Assistance (Subject = 0% +), 2 = Maximal Assistance (Subject = 25% +), 3 = Moderate Assistance (Subject = 50% +), 4 = Minimal Assistance (Subject = 75% +), 5 = Supervision, 6 = Modified Lajas (Device), 7 = Complete Lajas (Timely, Safely). Assessment Date/Time Source Assessment Type Assessment Skill Assessment Score Assessment Details No data available for this section
[2024-11-13] MEDS: SODIUM CHLORIDE 0.9% IV 2,000 ML 999 ML IV CONT (22:54)
[2024-11-13] MEDS: ONDANSETRON INJ 4 MG/2 ML VIAL IV PUSH (22:56)
[2024-11-13] MEDS: ACETAMINOPHEN 500 MG TABLET 1000 MG PO (22:58)
[2024-11-13] MEDS: PROCHLORPERAZINE EDISYLATE 10 MG/2 ML VIAL IV PUSH (23:06)
[2024-11-13 23:30] LABS: Lithium 0.2 mmol/L (0.6-1.2)
[2024-11-13 23:36] VITALS: BP 115/72; PULSE 113; RESP 22; O2SAT 99
--- NOTE | 2024-11-13 23:50 | ED.GENADULT ---
HPI - General Adult General Chief complaint: Nausea/Vomiting/Diarrhea Stated complaint: N/V/D Time Seen by Provider: 11/13/24 22:17 History of Present Illness HPI narrative: This is a 24-year-old female presenting with 1 day of nausea vomiting diarrhea. Symptoms started at 10:00 a.m.. She has had subjective fevers and a frontal headache. She denies chest pain difficulty breathing URI symptoms or abdominal pain. She denies dysuria but has had increased urinary frequency. No sick contacts at home. Related Data Allergies Allergy/AdvReac Type Severity Reaction Status Date / Time fluconazole (From Diflucan) Allergy Unknown Unknown Verified 11/13/24 22:20 [facility] Past Medical History Medical History Patient denies medical problems Surgical History Surgical History History of removal of cyst Hx of tonsillectomy Family History Family History Other No significant family history Social History Social History Smoking status: Never smoker Alcohol intake: current Alcohol use details: occasional Substance use: never Do You Feel Safe in your Home?: Yes Lack of Transportation: No Lack of Food: Never True Current Housing: I Have Housing Concerned About Future Housing: No Difficulty Paying Gas/Electric Bills: No Difficulty Paying for Meds: No Currently Unemployed: No Education: Trade/Vocational Certificate Difficulty w/ Childcare or Family Care: No Living arrangements: with family Occupation/Education: occupation 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 Well-appearing Head: atraumatic. EYES: EOMI, NOSE: Atraumatic NECK: Trachea midline RESPIRATORY: No increased rate of breathing CTAB CARDIOVASCULAR: Tachycardic ABDOMINAL: Non-distended soft nontender MUSCULOSKELETAl: No obvious deformities NEURO: Alert. Moving 4/4 extremities SKIN:: Warm, dry. Normal color PSYCHIATRIC: Normal affect Course Vital Signs Vital signs: Vital Signs Temperature 98.5 F 11/13/24 20:54 Pulse Rate 110 H 07/31/25 20:54 Respiratory Rate 20 11/13/24 20:54 Blood Pressure 125/71 11/13/24 20:54 Pulse Oximetry 100 11/13/24 20:54 Oxygen Delivery Room Air 11/13/24 20:54 Temperature 98.5 F 11/13/24 20:54 Pulse Rate 113 H 11/13/24 23:36 Respiratory Rate 22 H 11/13/24 23:36 Blood Pressure 115/72 11/13/24 23:36 Pulse Oximetry 99 11/13/24 23:36 Oxygen Delivery Room Air 11/13/24 20:54 Medical Decision Making MDM Narrative Medical decision making narrative: -Course: 24-year-old female presenting 1 day of nausea vomiting diarrhea. Tachycardic on arrival. Given fluid resuscitation and antiemetics and a migraine cocktail. Laboratory studies showed white count 12.8. Urine with 6-10 white blood cells and 4+ bacteria. Given her increased urinary frequency we will treat her for a UTI with Keflex. Cardwell is subtherapeutic at 0.2. Patient presentation most likely gastroenteritis. Patient be discharged with supportive measures. UTI will be treated although that is not likely the cause of her symptoms. -DDX includes but is not limited to: Gastroenteritis, food poisoning, UTI, lithium poisoning -Co-morbidities complicating care: Anxiety depression bipolar disorder Vital Signs Vital Signs: Vital Signs Temperature 98.5 F 11/13/24 20:54 Pulse Rate 110 H 11/13/24 20:54 Respiratory Rate 20 11/13/24 20:54 Blood Pressure 125/71 11/13/24 20:54 Pulse Oximetry 100 11/13/24 20:54 Oxygen Delivery Room Air 11/13/24 20:54 Temperature 98.5 F 11/13/24 20:54 Pulse Rate 113 H 11/13/24 23:36 Respiratory Rate 22 H 11/13/24 23:36 Blood Pressure 115/72 11/13/24 23:36 Pulse Oximetry 99 11/13/24 23:36 Oxygen Delivery Room Air 11/13/24 20:54 Lab Data 11/13/24 22:24 11/13/24 22:24 Labs: Lab Results 11/13/24 11/13/24 11/13/24 Range/Units 22:23 22:24 22:27 WBC 12.8 H (4.5-10.0) K/mm3 RBC 4.25 (4.2-5.4) M/mm3 Hgb 13.2 (12.0-15.0) g/dL Hct 40.1 (37.0-47.0) % MCV 94.4 (80-100) fl MCH 31.1 (26-34) pg MCHC 32.9 (32-36) g/dl RDW 11.9 (11.5-14.5) % Plt Count 276 (150-375) k/mm3 MPV 9.7 (7.4-10.4) fl Immature Gran % (Auto) 0.3 (0-0.5) % Neut % (Auto) 92.5 H (45.5-73.1) % Lymph % (Auto) 4.5 L (18.3-44.2) % [place] % (Auto) 2.3 L (2.6-8.5) % Eos % (Auto) 0.2 (0-4.4) % Baso % (Auto) 0.2 (0.2-1.2) % Lymph # (Auto) 0.58 L (0.9-3.2) K/mm3 [place] # (Auto) 0.3 (0.1-0.6) K/mm3 Eos # (Auto) 0.0 (0-0.3) K/mm3 Baso # (Auto) 0.0 (0.0-0.1) K/mm3 Abs Immat Gran (auto) 0.04 H (0.00-0.031) K/mm3 Absolute Neuts (auto) 11.8 H (1.3-6.7) K/mm3 Absolute Nucleated RBC 0.000 (0.0-0.012) K/mm3 Nucleated RBC % 0.0 (0.0-0.2) % Sodium 134 L (137-145) mmol/L Potassium 3.6 (3.4-5.0) mmol/L Chloride 98 (98-107) mmol/L Carbon Dioxide 26 (22-30) mmol/L Anion Gap 10 (4-12) mmol/L BUN 16 (7-17) mg/dL Creatinine 0.66 L (0.7-1.0) mg/dL Estim Creat Clear Calc Not Reportable Estimated GFR > 60 (59 - ) Glucose 113 H (65-110) mg/dL Calcium 9.4 (8.4-10.2) mg/dL Total Bilirubin 0.5 (0.2-1.3) mg/dL AST 24 (14-36) U/L ALT 17 (6-35) U/L Alkaline Phosphatase 59 (38-126) U/L Total Protein 7.4 (6.3-8.2) g/dL Albumin 4.6 (3.5-5.1) g/dL Lipase 63 (23-300) U/L Urine Color Yellow (Yellow) Urine Appearance Clear (Clear) Urine pH 6.5 (5.0-9.0) Ur Specific Moss 1.036 H (1.001-1.035) Urine Protein Trace (Negative) mg/dL Urine Glucose (UA) Negative (Negative) mg/dL Urine Ketones Trace H (Negative) mg/dL Ur Blood (Man) Negative (Negative) Urine Nitrate Negative (Negative) Urine Bilirubin Negative (Negative) Urine Urobilinogen 1.0 (<2.0) mg/dL Leukocyte Esterase Rfl 1+ H (Negative) FAHEEM/UL Urine RBC 3-5 H (0-2) /hpf Urine WBC 6-10 H (0-3) /hpf Ur Squamous Epith Cells Moderate (Few) /hpf Urine Bacteria 4+ H /hpf Urine Casts 0-2 POC Urine HCG, Qual Negative (Negative) Cardwell 0.2 L (0.6-1.2) mmol/L Discharge Plan Discharge Clinical Impression: Nausea & vomiting, UTI (urinary tract infection) Patient Disposition: Home Condition: Stable Instructions: Antibiotic Form, Urinary Tract Infection in Women (DC), Acute Nausea and Vomiting (DC) Additional Instructions: You were seen in the emergency department for nausea/vomiting. Please use Zofran for nausea. Please complete a course of Keflex for urinary tract infection. Follow-up with your primary care physician for further management. If you develop fevers severe pain or intractable nausea vomiting can return to ED for re-evaluation. Patient Language: Upper Sorbian Prescriptions: New ondansetron 4 mg tablet,disintegrating 4 mg PO Q8H PRN (Reason: nausea and vomiting) Qty: 30 0RF cephalexin 500 mg capsule 500 mg PO Q12H Qty: 14 0RF cephalexin 500 mg capsule 500 mg PO Q12H Qty: 10 0RF Follow-up/Referrals: Rincon,Armida Edmonds APN [Primary Care Provider] - 1 Week
[2024-11-13] MEDS: CEPHALEXIN 500 MG CAPSULE PO (23:58)
[2024-11-14 00:25] VITALS: BP 127/77; PULSE 99; RESP 18; O2SAT 100
== END 2024-11-14 00:26 | disposition home or self-care (01) ==
PROVIDERS: Emergency Provider Emergency Medicine; PCP Nurse Practitioner Family
DX: N39.0 Urinary tract infection, site not specified (principal); R11.2 Nausea with vomiting, unspecified
CPT/HCPCS: 36415; 80053; 80178; 81001; 81025; 83690; 85025; 96360; 96361; 96374; 96375; 99284; 99285; A9270; J0780; J1200; J2405; J7030